=== PATIENT | female | born 1970 | race Caucasian/White ===

== ENCOUNTER 2022-02-03 00:50 | Emergency (ER) | payer SELFPAY ==
[~2022-02-03] VITALS: Ht 154.9 cm; Wt 73.0 kg
[~2022-02-03 00:50] MED LIST: CLIN300C61 PO; HYDR-5191 PO
[2022-02-03] MEDS ORDERED: DEXAMETHASONE 4 MG/ML VIAL IVP ONE (01:45)
[2022-02-03] MEDS ORDERED: AZITHROMYCIN 250 MG TAB PO ONE (01:45)
[2022-02-03] MEDS ORDERED: ALBUTEROL SULFATE/IPRATROPIU 3 ML SOL IH ONE (01:45)
[2022-02-03 01:53] VITALS: BP 129/89
--- NOTE | 2022-02-03 01:59 | NUR ---
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
--- NOTE | 2022-02-03 01:59 | NUR ---
RT GIVING BREATHING TREATMENT TO PT
--- NOTE | 2022-02-03 02:09 | NUR ---
PT TAKEN TO CHAIR
[2022-02-03 02:10] LABS: BASOPHILS # (AUTO) 0.1 K/uL (0.00-0.22); BASOPHILS % (AUTO) 0.7 % (0.0-2.0); EOSINOPHILS # (AUTO) 0.4 K/uL (0-0.4); EOSINOPHILS % (AUTO) 4.4 % (0.0-4.0); HEMATOCRIT 25.5 % (36-48); HEMOGLOBIN 7.4 g/dL (12.0-16.0); LYMPHOCYTES # (AUTO) 2.7 K/uL (2.5-16.5); LYMPHOCYTES % (AUTO) 28.7 % (20.5-51.1); MEAN CORPUSCULAR HEMOGLOBIN 20 pg (27-31); MEAN CORPUSCULAR HGB CONC 29 g/dL (33-37); MONOCYTES # (AUTO) 0.8 K/uL (0.8-1.0); MONOCYTES % (AUTO) 8.8 % (1.7-9.3); NEUTROPHILS # (AUTO) 5.4 K/uL (1.8-7.7); NEUTROPHILS % (AUTO) 57.4 % (42.2-75.2); PLATELET COUNT (AUTO) 343 K/uL (140-450); WHITE BLOOD COUNT (AUTO) 9.4 K/uL (4.8-10.8)
[2022-02-03 02:31] LABS: ALBUMIN 3.4 g/dL (3.4-5.0); ANION GAP 8.4 (8-16); CREATININE 0.9 mg/dL (0.6-1.3); POTASSIUM 4.4 mmol/L (3.5-5.1); TOTAL BILIRUBIN 0.2 mg/dL (0.0-1.0)
--- NOTE | 2022-02-03 02:50 | NUR ---
51 Y/O FEMALE BIBS, C/O SOB X1.5 MONTHS, PROGRESSIVELY WORSE OVER PAST FEW WEEKS. -CP, TACHYCARDIA, TACHYPNIA. "FINGERS TINGLE." - DIZZY. A/OX4, UNLABORED BREATHING, AMBULATORY, - CYANOSIS, -N/V. HX: BELLS PALSY ALL: CEPHALOSPORIN NO MEDS
[2022-02-03] MEDS ORDERED: cefTRIAXone 1,000 MG VIAL ONE (02:54)
[2022-02-03] MEDS ORDERED: AZITHROMYCIN 250 MG TAB ONE ×2 (02:54→03:20)
[2022-02-03] MEDS ORDERED: DEXAMETHASONE 4 MG/ML VIAL ONE (02:54)
--- NOTE | 2022-02-03 03:36 | NUR ---
COVID/KIMBERLY AND FLU SWABS COLLECTED AND WALKED TO LAB
[2022-02-03] MEDS ORDERED: OSELTAMIVIR PHOSPHATE 75 MG CAP PO ONE (04:35)
[2022-02-03] MEDS ORDERED: PRON INH (04:45)
[2022-02-03] MEDS ORDERED: TAM75 PO (04:45)
[2022-02-03] MEDS ORDERED: PRED20TA5 PO (04:45)
[2022-02-03] MEDS ORDERED: NEBU1KIT2 MC (04:45)
[2022-02-03 05:09] VITALS: BP 129/89
--- NOTE | 2022-02-03 05:10 | NUR ---
Patient discharged with v/s stable. Written and verbal after care instructions given and explained. Patient alert, oriented and verbalized understanding of instructions. Ambulatory with steady gait. All questions addressed prior to discharge. ID band removed. Patient advised to follow up with PMD. Rx of NEBULIZER, PREDNISONE, ALBUTEROL SULFATE AND TAMIFUL given. Patient educated on indication of medication including possible reaction and side effects. Opportunity to ask questions provided and answered.
== END 2022-02-03 05:10 | disposition home or self-care (01) ==
LOC: MED 00:50
DX: J11.1 Influenza due to unidentified influenza virus with other respiratory manifestations (principal); Z20.822 Contact with and (suspected) exposure to COVID-19; J44.9 Chronic obstructive pulmonary disease, unspecified; Z88.1 Allergy status to other antibiotic agents; Z79.899 Other long term (current) drug therapy
CPT/HCPCS: 36415; 71045; 80053; 83605; 83880; 84484; 85025; 87040; 87426; 87804; 93005; 96365; 96375; 99285; J0696; J1100